=== PATIENT | male | born 1950 | race Caucasian/White ===

== ENCOUNTER 2021-10-22 10:41 | Inpatient (IN) | payer MEDICARE, OTHER ==
[~2021-10-22] VITALS: Ht 160 cm; Wt 90.9 kg
[2021-10-22 10:54] LABS: HEMOGLOBIN 19.5 gm/dl (14.0-17.5); RED BLOOD COUNT 5.97 M/UL (4.20-5.50); WHITE BLOOD COUNT 9.2 K/UL (4.5-11.0)
[2021-10-22 11:14] LABS: BUN/CREATININE RATIO 19 (0-10)
[2021-10-23 03:16] LABS: HEMOGLOBIN 18.9 gm/dl (14.0-17.5); RED BLOOD COUNT 5.9 M/UL (4.20-5.50); WHITE BLOOD COUNT 7.6 K/UL (4.5-11.0)
[2021-10-23 03:48] LABS: BUN/CREATININE RATIO 22 (0-10)
[2021-10-24 02:12] LABS: HEMOGLOBIN 18.9 gm/dl (14.0-17.5); RED BLOOD COUNT 5.82 M/UL (4.20-5.50)
[2021-10-24 02:22] LABS: BUN/CREATININE RATIO 29 (0-10); WHITE BLOOD COUNT 13.9 K/UL (4.5-11.0)
[2021-10-24] MEDS ORDERED: PROVENTIL HFA6.7 GM INH (13:06)
[2021-10-24] MEDS ORDERED: PROTONIX 40 MG40 M1 PO (13:06)
[2021-10-24] MEDS ORDERED: POLYETHYLENE GL17 GM PO (13:06)
[2021-10-24] MEDS ORDERED: ACETAMINOPHEN325 MG PO (13:06)
[2021-10-24] MEDS ORDERED: ASPIRIN EC81 MG PO (13:06)
[2021-10-24] MEDS ORDERED: ANORO ELLIPTA1 EACH INH (13:06)
[2021-10-24] MEDS ORDERED: AMLODIPINE BESYL5 MG PO (13:06)
[2021-10-24] MEDS ORDERED: IPRAT-ALBUT 0.5-3 ML NEB (13:06)
[2021-10-24] MEDS ORDERED: GLUCOPHAGE 500500 MG GT (13:24)
[2021-10-25 16:14] LABS: ORGANISM ID Not indicated. (.); SPECIMEN SOURCE Urine (.); STREPTOCOCCUS PNEUMONIAE AG Negative (Negative)
== END 2021-10-24 13:35 | disposition home or self-care (01) | DRG 189 ==
LOC: ER1 10:41 → CDU 12:55 → PROG CARE 12:55
PROVIDERS: Emergency Medicine; Physician Assistant Medical; ADMIT Internal Medicine
PROC: 5A09357 Assistance with Respiratory Ventilation, Less than 24 Consecutive Hours, Continuous Positive Airway Pressure (ICD-10-PCS; 2021-10-22)
PROC: B24BZZZ Ultrasonography of Heart with Aorta (ICD-10-PCS; principal; 2021-10-23)
PROC: 5A09357 Assistance with Respiratory Ventilation, Less than 24 Consecutive Hours, Continuous Positive Airway Pressure (ICD-10-PCS; 2021-10-24)
DX: J96.21 Acute and chronic respiratory failure with hypoxia (principal); J44.1 Chronic obstructive pulmonary disease with (acute) exacerbation; I16.1 Hypertensive emergency; Z20.822 Contact with and (suspected) exposure to COVID-19; J96.22 Acute and chronic respiratory failure with hypercapnia; E11.9 Type 2 diabetes mellitus without complications; K21.9 Gastro-esophageal reflux disease without esophagitis; I11.0 Hypertensive heart disease with heart failure; D69.6 Thrombocytopenia, unspecified; I08.2 Rheumatic disorders of both aortic and tricuspid valves; I50.9 Heart failure, unspecified; D75.1 Secondary polycythemia; G47.33 Obstructive sleep apnea (adult) (pediatric); F17.210 Nicotine dependence, cigarettes, uncomplicated; Z99.81 Dependence on supplemental oxygen; Z90.49 Acquired absence of other specified parts of digestive tract; Z82.49 Family history of ischemic heart disease and other diseases of the circulatory system; Z83.3 Family history of diabetes mellitus; Z79.01 Long term (current) use of anticoagulants; Z79.82 Long term (current) use of aspirin; Z71.6 Tobacco abuse counseling
CPT/HCPCS: ECHO; 0241U; 36415; 36600; 71045; 71046; 80048; 80053; 82550; 82553; 82803; 82962; 83036; 83605; 83735; 83880; 84100; 84484; 85025; 85027; 85610; 85730; 86140; 87040; 87278; 87899; 93005; 93306; 94640; 94660; 94664; 94760; 96374; 96375; 99285; J0360; J0696; J1650; J1940; J2060; J2405; J2920; J2930; J3475

== ENCOUNTER → 2021-11-20 | Outpatient (CLI) | payer MEDICARE, OTHER ==
[~2021-11-20] MED LIST: ACETAMINOPHEN325 MG PO; AMLODIPINE BESYL5 MG PO; ANORO ELLIPTA1 EACH INH; ASPIRIN EC81 MG PO; GLUCOPHAGE 500500 MG GT; IPRAT-ALBUT 0.5-3 ML NEB; POLYETHYLENE GL17 GM PO; PROTONIX 40 MG40 M1 PO; PROVENTIL HFA6.7 GM INH
== END ==
LOC: HEART 5 14:08
DX: J30.9 Allergic rhinitis, unspecified (principal); F41.9 Anxiety disorder, unspecified; E66.9 Obesity, unspecified
CPT/HCPCS: 94060; 94729